=== PATIENT | male | born 1970 | race Two or more races ===

== ENCOUNTER 2025-03-09 03:10 | Emergency (ER) | payer MEDICAID, SELFPAY ==
--- NOTE | 2025-03-09 03:13 | EKG_ITS ---
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
[2025-03-09 03:17] VITALS: BP 196/106; PULSE 50; RESP 16; TEMP 36.7; O2SAT 96
--- NOTE | 2025-03-09 03:53 | XR_ITS ---
Examination: PA lateral chest 2 views TECHNIQUE: Upright PA and lateral chest 2 views Date and time: March 09, 2025 0355 hours INDICATIONS: Chest pain today. FINDINGS: Normal heart size. Lungs are clear. Mild thoracic spondylosis IMPRESSION: No active disease.
[2025-03-09 04:02] VITALS: BP 196/106; PULSE 50
[2025-03-09 04:21] LABS: Basophils # (Auto) 0.0 Thou/mm3 (0.0-0.2); Basophils % (Auto) 0 % (0-2.5); Eosinophils # (Auto) 0.4 Thou/mm3 (0.0-0.5); Eosinophils % (Auto) 5 % (0-10); Hematocrit 38.4 % (41.0-53.0); Hemoglobin 13.9 g/dL (13.5-16.0); Immature Granulocytes Auto 0.01 Thou/mm3 (0.00-0.00); Lymphocytes # (Auto) 2.0 Thou/mm3 (1.0-4.8); Lymphocytes % (Auto) 29 % (10-50); Mean Corpuscular HGB Conc 36.2 g/dl (31.0-37.0); Mean Corpuscular Hemoglobin 31.5 pg (25.0-35.0); Mean Corpuscular Volume 87 fL (80-100); Monocytes # (Auto) 0.5 Thou/mm3 (0.0-0.8); Monocytes % (Auto) 7 % (0-12); Neutrophils # (Auto) 3.9 Thou/mm3 (1.8-7.7); Neutrophils % (Auto) 58 % (37-80); Nucleated Red Blood Cell # 0.00 Thou/mm3 (0.00-0.00); Nucleated Red Blood Cell % 0 /100 WBC (0); Platelet Count 183 Thou/mm3 (140-440); RDW Standard Deviation 39.8 fL (35.1-43.9); Red Blood Count 4.41 Miln/mm3 (4.50-5.90); White Blood Count 6.7 Thou/mm3 (3.8-10.6)
--- NOTE | 2025-03-09 04:24 | PD.EDADULT ---
ED General RME/HPI General Chief complaint: General Adult/Misc Complain Stated complaint: HIGH BP Time Seen by Provider: 03/09/25 03:25 Arrival date/time: 03/09/25 03:10 RME / HPI RME / HPI narrative: 54-year-old male presents to the ED with a complaint of elevated blood pressure since this evening. His blood pressure usually ranges between 117 and 130 systolic. He takes Edarbi (unknown dose) as well as amlodipine 5 mg p.o. daily. He is taking his medications as prescribed. He denies any chest pain or shortness of breath however he does have bilateral shoulder and arm pain. He has had some nausea and headache as well. He was last seen by his PCP approximately 2 months ago. 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 Related Data Allergies Allergy/AdvReac Type Severity Reaction Status Date / Time No Known Allergies Allergy Verified 03/09/25 03:11 Review of Systems Review of Systems Systems Reviewed: All systems reviewed, normal except as documented Past Medical History Past Medical History CARDIAC: Positive Hypertension Social History SMOKING STATUS: Former smoker ED Exam Narrative Physical exam: A&O, afebrile and non-toxic appearing 54-year-old male, no acute distress. Pupils are PERRL, EOMs intact, cranial nerves II through XII grossly intact. Lung sounds are clear, bradycardia at 50, regular rhythm without murmurs, Abdomen is soft, nontender, and non-distended. 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 Normal sensory to all 4 extremities. Moves all extremities well. Course Course Course Narrative: Initial blood pressure 196/106, pulse 50, respirations 16 and nonlabored, temperature 98.0, O2 sat 96% on room air. CBC reveals a normal white count of 6.7, normal hemoglobin, mildly low hematocrit of 38.4, and normal platelets at 183. Coags are normal. CMP reveals normal electrolytes, normal renal function and normal liver function. Magnesium is normal at 1.9, LDH is normal at 223, troponin is normal at 0.025 and BNP is normal at 83. Urinalysis and urine tox screen are still pending. EKG reveals sinus bradycardia at [address] elevation. XR chest reveals: Patient was given clonidine 0.2 mg p.o. Repeat vitals revealed blood pressure 152/96, pulse 50, respirations 12 and nonlabored, temperature 98.0, O2 sat 98% on room air. Repeat EKG and delta Trop ordered and pending. Care of patient transferred to EBONIE Wilkins at the end of shift, pending repeat EKG and Troponin. Quality Measures none Orders Category Date Time Status EKG (ED ONLY) *Do not use* NOW Care 03/09/25 03:13 Completed EKG (ED ONLY) *Do not use* NOW Care 03/09/25 05:31 Completed EKG (ED Only) Stat Exams 03/09/25 03:13 Draft EKG (ED Only) Stat Exams 03/09/25 05:30 Ordered XR chest 2V Stat Exams 03/09/25 03:53 Taken B-Type Natriuretic Peptide Stat Lab 03/09/25 04:09 Completed CBC Stat Lab 03/09/25 04:09 Completed Comprehensive Metabolic Panel Stat Lab 03/09/25 04:09 Completed Drug Screen,Urine Stat Lab 03/09/25 04:58 Completed LDH (Lactate Dehydrogenase) Stat Lab 03/09/25 04:09 Completed Magnesium Stat Lab 03/09/25 04:09 Completed Partial Thromboplastin Time Stat Lab 03/09/25 04:09 Completed Prothrombin Time with INR Stat Lab 03/09/25 04:09 Completed Troponin I Stat Lab 03/09/25 04:09 Completed Troponin I Stat Lab 03/09/25 05:30 Ordered Urinalysis, C/S if Indicated Stat Lab 03/09/25 04:58 Completed cloNIDine HCL [Catapres] Med 03/09/25 03:53 Discontinued 0.2 mg PO X1 ONE Vital Signs Vital signs: Vital Signs Temperature 98.0 F 03/09/25 03:17 Pulse Rate 50 L 03/09/25 03:17 Respiratory Rate 16 03/09/25 03:17 Blood Pressure 196/106 H 03/09/25 03:17 Pulse Oximetry (%) 96 03/09/25 03:17 Oxygen Delivery Method Room Air 03/09/25 03:17 Discharge Plan Plan Patient Disposition: HOME (Self Care) Discharge Disposition comment: Stable Prescriptions/Referrals Referrals: Marya Singleton PA-C [Primary Care Provider] - In 1 week Problem List Clinical Impression: Elevated blood pressure reading with diagnosis of hypertension Patient/Caregiver Discharge Instructions Education Materials: Controlling High Blood Pressure, ED Hypertension, Established, ED High Blood Pressure ... Additional Instructions: Agenda ed medicamentos seg?n lo prescrito; sin embargo, si trivedi presi?n arterial persiste elevada, le recomendamos coty 10 mg de amlodipino al d?a. Contacte a trivedi m?dico de cabecera hoy o ma?cyndi para que lo derive a un cardi?logo para que le realice amanda evaluaci?n diagn?stica y valore trivedi presi?n arterial elevada. Regrese a urgencias si presenta s?ntomas nuevos o empeora. Print Language: Lithuanian Stand Alone Forms: Alicia Award Info., Patient Portal Info Letter PA/LOAN SUPERVISOR Supervising Physician PA/LOAN SUPERVISOR Supervising Physician: Dr. Alston [facility] Narrative MDM hospital course: Symptoms, exam and diagnostic studies are consistent with: Elevated blood pressure reading with a diagnosis of hypertension. Patient was discharged home in stable condition. Patient/family advised to follow-up with their PCP in 24-48 hours. Encouraged to return to the ED for any new or worsening symptoms. Clinical Information Provided by patient Medical Records Reviewed None Meds/Rx Considered, not Ordered None Describe details: N/A Labs/Rad/Tests considered, not Ordered Describe details: N/A Chronic Illness/Social Conditions which may negatively complicate care or outcome(s)-explain: other (Hypertension) EKG EKG Interpretation narrative: As noted above Lab Interpretation Labs: interpreted by me Lab(s) interpretation(s): As noted above Imaging Radiology reports / interpretation(s): No obvious infiltrate. Official radiology reading still pending. Medication Administration(s) Medication Administration History Discontinued Medications Clonidine (Clonidine Hcl 0.1 Mg Tablet) 0.2 mg PO X1 ONE Stop: 03/09/25 03:54 Last Admin: 03/09/25 04:02 Dose: 0.2 mg Documented By: CVL As noted above Diagnosis Differential diagnosis: Hypertensive urgency, hypertensive emergency, ACS, anxiety Most likely dx, and/or detailed dx discussion: Elevated blood pressure with diagnosis of hypertension. Dispositon Disposition: Discharge Home Disposition comments: Patient is stable for discharge if second EKG and troponin are normal.
[2025-03-09 04:48] LABS: INR 0.9 (0.9-1.3); Partial Thromboplastin Time 26.3 Seconds (22.0-36.0); Prothrombin Time 10.3 Seconds (9.0-12.2)
[2025-03-09 04:50] LABS: B-Type Natriuretic Peptide 83 pg/mL (0-100)
[2025-03-09 04:53] LABS: Alanine Aminotransferase 50 U/L (10-49); Albumin, Serum 4.2 gm/dL (3.5-5.0); Albumin/Globulin Ratio 1.9 (1.2-2.2); Alkaline Phosphatase 68 U/L (46-116); Anion Gap 10 (7-16); Aspartate Amino Transferase 32 U/L (0-34); BUN/Creatinine Ratio 11 Ratio (12-20); Bilirubin,Total 0.9 mg/dL (0.3-1.2); Blood Urea Nitrogen 14 mg/dL (9-23); Calcium 9.1 mg/dL (8.3-10.6); Calcium (Corrected) 9.1 mg/dL (8.5-10.1); Carbon Dioxide 27.5 mMol/L (20.0-31.0); Chloride 105 mMol/L (98-107); Creatinine (Component) 1.3 mg/dL (0.6-1.3); Globulin 2.2 gm/dL (2.3-3.5); Glucose 108 mg/dL (74-106); LDH (Lactate Dehydrogenase) 223 U/L (120-246); Magnesium 1.9 mg/dL (1.6-2.6); Osmolality,Calculated 284 (275-295); Potassium 3.7 mMol/L (3.4-5.1); Sodium 142 mMol/L (136-145); Total Protein 6.4 gm/dL (5.7-8.2); Troponin I 0.025 ng/mL (0.0-0.045); eGFR > 60 See Note
[2025-03-09 04:56] VITALS: BP 152/96; PULSE 50; RESP 12; O2SAT 98
[2025-03-09 05:09] LABS: Collection Type, Urine Clean Catch; Squamous Epithelial Cell,Urine 0 /hpf (0-5)
[2025-03-09 05:12] LABS: Bilirubin,Urine Negative (Negative); Blood,Urine Negative (Negative); Clarity,Urine Clear (Clear/Hazy); Color,Urine Lt-Yellow (Lt Yel-Yel); Culture Indicated,Urine Not Indicated; Glucose, Urine Negative (Negative); Ketones,Urine Negative (Negative); Leukocyte Esterase,Urine Negative (Negative); Nitrite,Urine Negative (Negative); PH,Urine 6.5 (5.0-7.0); Protein,Urine Negative (Neg - Trace); RBC,Urine 1 /hpf (0-3); Specific Gravity,Urine 1.015 (1.001-1.035); Urobilinogen,Urine Negative mg/dL (0.0-1.0); WBC,Urine 1 /hpf (0-5)
[2025-03-09 05:21] LABS: Amphetamine/Methamp Scrn,U Negative (Negative); Barbiturate Screen,Urine Negative (Negative); Benzodiazepines Screen,Urine Negative (Negative); Benzoylecgonine Screen, Ur Negative (Negative); Fentanyl Screen,Urine Negative (Negative); Opiate Screen,Urine Negative (Negative); THC Screen,Urine Negative (Negative)
--- NOTE | 2025-03-09 05:30 | EKG_ITS ---
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
[2025-03-09 08:02] LABS: Troponin I 0.021 ng/mL (0.0-0.045)
== END 2025-03-09 08:37 | disposition home or self-care (01) ==
PROVIDERS: Physician Assistant; Emergency Provider Family Medicine; PCP Physician Assistant
DX: I10 Essential (primary) hypertension (principal); R00.1 Bradycardia, unspecified; M25.512 Pain in left shoulder; M25.511 Pain in right shoulder; Z87.891 Personal history of nicotine dependence; Z79.899 Other long term (current) drug therapy
CPT/HCPCS: 36415; 71046; 80053; 80307; 81001; 83615; 83735; 83880; 84484; 85025; 85610; 85730; 93005; 99283; A9270